=== PATIENT | female | born 1995 | race Caucasian/White ===

== ENCOUNTER 2016-09-25 12:57 | Emergency (ER) | payer OTHER ==
[~2016-09-25] VITALS: Ht 157.5 cm; Wt 53.5 kg
[2016-09-25 13:01] VITALS: BP 123/79
--- NOTE | 2016-09-25 13:14 | ED ANIMAL BITE/WOUND CHECK ---
History of Present Illness General Chief Complaint: General Adult Stated Complaint: RABIES SHOT Source: patient Exam Limitations: no limitations Vital Signs & Intake/Output Vital Signs & Intake/Output Vital Signs Date Time Temp Pulse Resp B/P B/P Pulse O2 O2 Flow FiO2 Mean Ox Delivery Rate 09/25 1301 97.4 83 20 123/79 98 Room Air Allergies Coded Allergies: No Known Allergies (09/25/16) Triage Note: PT TO ED REQUESTING RABIES SERIES. WAS IN A HOUSE WITH A BAT. PT WAS NOT BITTEN. Triage Nurses Notes Reviewed? yes Onset: Abrupt Duration: day(s):, constant Timing: single episode today Injury Environment: home Is Injury an Animal Bite? No Animal Type: bat Context of Animal Attack: bat in house Appearance of Animal: unknown Animal Immunization Status: unknown Observation/Capture: not captured No Modifying Factors: none LMP (ages 10-50): unknown : No Patient currently breastfeeds: No HPI: 21-year-old female with no significant past medical history presents for evaluation evaluation after finding a bat in her house. Patient is unsure if she was bitten but states that a bat was found in her house. She was unable to capture the bat and she is not sure if it's still in her house. Patient is feeling well and has no concerns. She denies any symptoms. She denies any signs of a bite anywhere on her skin. No previous rabies vaccine. sHe is up-to -date on all other vaccines. Past History Travel History Traveled to [place] past 21 day No Medical History Any Pertinent Medical History? see below for history Surgical History Surgical History: none Psychosocial History What is your primary language Albanian Tobacco Use: Never used ETOH Use: denies use Illicit Drug Use: denies illicit drug use Family History Hx Contributory? No Review of Systems Review of Systems Constitutional: Reports: no symptoms. EENTM: Reports: no symptoms. Respiratory: Reports: no symptoms. Cardiovascular: Reports: no symptoms. GI: Reports: no symptoms. Genitourinary: Reports: no symptoms. Musculoskeletal: Reports: no symptoms. Skin: Reports: no symptoms. Neurological/Psychological: Reports: no symptoms. Hematologic/Endocrine: Reports: no symptoms. Immunologic/Allergic: Reports: no symptoms. All Other Systems: Reviewed and Negative Physical Exam Physical Exam General Appearance: well developed/nourished, no apparent distress, alert, awake Comments: General: Hemodynamically stable. Afebrile. Well-developed well-nourished person in no acute distress. Head: Atraumatic, normocephalic Eyes: EOMI bilaterally, PERRLA, conjunctiva are not injected, no discharge, no nystagmus, fundus grossly normal bilaterally Nose: Atraumatic, no rhinorrhea, mucosa is not erythematous, no epistaxis. Sinuses are non-tender Ears: TM pearly escobar color bilaterally, external canal is clear, no discharge, hearing is normal Mouth: Appropriate dentition, no gingival bleeding, moist mucus membranes, no oral lesions, tonsils not erythematous or enlarged and free of exudate. Uvula rises midline. Neck: Supple, full active ROM, no lymphadenopathy, no midline tenderness to palpation, no thyromegaly, no tracheal deviation. Back: Non-tender, full active ROM, no scoliosis, no CVA tenderness Cardiovascular: regular rate and rhythm, no murmurs, rubs, or gallops. No JVD Respiratory: Chest is nontender. Regular respiratory rate and effort. No accessory muscle use. Lungs clear to auscultation bilaterally. Abdomen: Soft, non-tender, non-distended, no organomegaly. No rebound tenderness or guarding. Normoactive bowel sounds. Extremities: No edema. No gross deformities. No joint swelling. No calf swelling or tenderness. Full active and passive ROM. Strength 5/5 in upper and lower extremities. Peripheral pulses 2+ bilaterally, Patellar DTR 2+ Neuro: No confusion. Motor and sensory function is intact. Appropriate gait. Cerebellar function intact. Skin: Warm and dry. Appropriate turgor. No lesions or bruising. No appreciable rash on exposed skin. Progress Differential Diagnosis: abscess, cellulitis, tenosysnovitis, bat bite, rabies exposure Plan of Care: Current Medications Sig/Jhoana Start time Last Medication Dose Stop Time Status Admin Rabies Immune 1,060 UNITS ONCE ONE 09/25 1329 AC Globulin 09/25 1330 (Rabies Immune Globlulin Inj) Rabies Vaccine 1 SYR ONCE ONE 09/25 1329 AC (Rabies (Vaccine) 09/25 1330 Inj (1ML)) Patient reports that a bed has been in her house. That was not captured. She' ll be given both rabies vaccine and rabies immunoglobulin. (ELLEN OLIVIA,KEVEN) Departure Departure Disposition: HOME OR SELF CARE Condition: Stable Clinical Impression Primary Impression: Need for rabies vaccination Referrals: JACK MARIE,ZOEY Mercado (PCP/Family) Additional Instructions: If you're able to capture the bat have it tested for rabies. The need to return to the emergency department at day 3 7 and 14 to receive additional rabies vaccines. Return sooner with any concerns. Departure Forms: Customer Survey General Discharge Information
== END 2016-09-25 13:55 ==
LOC: ERH 12:57
DX: Z20.3 Contact with and (suspected) exposure to rabies (principal)
CPT/HCPCS: 90376; 90471; 96372

== ENCOUNTER 2016-10-09 11:40 | Emergency (ER) | payer OTHER ==
[~2016-10-09] VITALS: Ht 157.5 cm; Wt 53.5 kg
[~2016-10-09 11:40] MED LIST: PREVIDENT100 ML TOP; PROAIR HFA8.5 GM INH
[2016-10-09 11:50] VITALS: BP 114/77
--- NOTE | 2016-10-09 12:00 | ED GENERAL ADULT ---
History of Present Illness General Chief Complaint: General Adult Stated Complaint: 4TH RABIE SHOT Source: patient Exam Limitations: no limitations Vital Signs & Intake/Output Vital Signs & Intake/Output Vital Signs Date Time Temp Pulse Resp B/P B/P Pulse O2 O2 Flow FiO2 Mean Ox Delivery Rate 10/09 1150 98.0 78 18 114/77 97 Room Air Allergies Coded Allergies: No Known Allergies (09/25/16) Reconcile Medications Albuterol Sulfate (Proair Hfa) 90 MCG HFA.AER.AD 2 PUF INH AD PRN ASTHMA ( Reported) Sodium Fluoride (Prevident) 1.1 % PASTE..ML. 1 STACY TOP DAILY TEETH (Reported) Triage Note: HERE FOR 4RTH RABIES SHOT, ? EXPOSURE TO BAT. Triage Nurses Notes Reviewed? yes : No Patient currently breastfeeds: No HPI: 21 yo F presenting for rabies vaccination. Patient exposed to bat on 09/25, no bite, unable to capture bat, treated empirically with rabies vaccine, presents for 4th shot in series. Patient has no complaints, denies fevers, chills, headaches, neck pain or focal neurologic Sx. (AJ MARIE,VICK) Past History Travel History Traveled to [place] past 21 day No Medical History Any Pertinent Medical History? none Neurological: NONE EENT: NONE Cardiovascular: NONE Respiratory: NONE Gastrointestinal: NONE Hepatic: NONE Renal: NONE Musculoskeletal: NONE Psychiatric: NONE Endocrine: NONE Blood Disorders: NONE Cancer(s): NONE Surgical History Surgical History: none Psychosocial History What is your primary language Chinese Tobacco Use: Never used ETOH Use: denies use Family History Hx Contributory? No (VICK ROCHA MD) Review of Systems Review of Systems Constitutional: Reports: no symptoms. EENTM: Reports: no symptoms. Respiratory: Reports: no symptoms. Cardiovascular: Reports: no symptoms. GI: Reports: no symptoms. Genitourinary: Reports: no symptoms. Musculoskeletal: Reports: no symptoms. Skin: Reports: no symptoms. Neurological/Psychological: Reports: no symptoms. Hematologic/Endocrine: Reports: no symptoms. Immunologic/Allergic: Reports: no symptoms. All Other Systems: Reviewed and Negative (VICK ROCHA MD) Physical Exam Physical Exam General Appearance: well developed/nourished, no apparent distress, alert, awake Head: normal appearance Eyes: Bilateral: PERRL, EOMI. Ears, Nose, Throat: normal ENT inspection Neck: normal inspection, supple, full range of motion Respiratory: normal breath sounds, no respiratory distress, lungs clear Cardiovascular: regular rate/rhythm, normal peripheral pulses Gastrointestinal: soft, non-tender Back: normal inspection Neurologic/Psych: no motor/sensory deficits, awake, alert, oriented x 3 Core Measures ACS in differential dx? No CVA/TIA Diagnosis: No Severe Sepsis Present: No Septic Shock Present: No (VICK ROCHA MD) Progress Differential Diagnoses I considered the following diagnoses in my evaluation of the patient: [ Rabies] Plan of Care: Current Medications Sig/Jhoana Start time Last Medication Dose Stop Time Status Admin Rabies Vaccine 1 SYR ONCE ONE 10/09 1200 AC (Rabies (Vaccine) 10/09 1201 Inj (1ML)) Physician MDM: 21 yo F presented for fourth rabies vaccination after bat exposure without bite. VSS, physical exam unremarkable. Fourth rabies vaccine administered. Given patient well-appearing, normal vital signs, no concerning symptoms, discharged with return precautions, plan to follow up with PMD in the next 2-3 days for further evaluation. (VICK ROCHA MD) Initial ED EKG: none (VICK ROCHA MD) Departure Departure Disposition: HOME OR SELF CARE Condition: Stable Clinical Impression Primary Impression: Encounter for repeat administration of rabies vaccination Referrals: JACK MARIE,ZOEY Mercado (PCP/Family) Additional Instructions: Follow-up with your primary care physician in the next 2-3 days for further evaluation. Return to the emergency department for any new, worsening, or concerning symptoms. Departure Forms: Customer Survey General Discharge Information (VICK ROCHA MD) Resident Co-Sign Statement Statement: ED Attending supervision documentation- [] I saw and evaluated the patient. I have also reviewed all the pertinent lab results and diagnostic results. I agree with the findings and the plan of care as documented in the Resident's documentation. [X] I have reviewed the ED Record and agree with the Resident's documentation. [] Additions or exceptions (if any) to the Resident's note and plan are summarized below: [] (JOHN MARIE,SIDDHARTH) Critical Care Note Critical Care Note Critical Care Time: non-applicable (VICK ROCHA MD)
== END 2016-10-09 12:23 ==
LOC: ERH 11:40
DX: Z20.3 Contact with and (suspected) exposure to rabies (principal)
CPT/HCPCS: 90471; 99281